=== PATIENT | female | born 1985 | race Caucasian/White ===

== ENCOUNTER 2017-07-13 15:52 | Emergency (ER) | payer OTHER ==
[~2017-07-13] VITALS: Ht 157.5 cm; Wt 68.0 kg
[~2017-07-13 15:52] MED LIST: ALBU90OI INH; ALBU90OI61 INH; CEPH500 PO; Camila0.35 MG PO; DOCU100 PO; ESOM20; ESOM20 PO; FEXO180 PO; FOLI1 PO; HYDSUL200 PO; IBUHYD PO; IBUP400; IBUP800 PO; LEFL20 PO; NAPR220; OXYC5 PO; PHENA200 PO; PROM25 PO; RXONDA4ODT MM; SULTRIDS PO; TRAM50 PO; Verotin-Gr Cap1 EACH; Zofran Odt4 MG PO
[2017-07-13] MEDS ORDERED: LEUCOVORIN CALC PO (16:05)
== END 2017-07-13 16:45 | disposition home or self-care (01) ==
LOC: ER 15:52
DX: S93.401A Sprain of unspecified ligament of right ankle, initial encounter (principal); K21.9 Gastro-esophageal reflux disease without esophagitis; Z88.5 Allergy status to narcotic agent; Z91.040 Latex allergy status; Z91.09 Other allergy status, other than to drugs and biological substances; Z91.048 Other nonmedicinal substance allergy status; Z79.51 Long term (current) use of inhaled steroids; Z79.899 Other long term (current) drug therapy; W10.9XXA Fall (on) (from) unspecified stairs and steps, initial encounter
CPT/HCPCS: 73610; 99283

== ENCOUNTER 2019-05-11 12:14 | Emergency (ER) | payer OTHER ==
[~2019-05-11] VITALS: Ht 154.9 cm; Wt 77.1 kg
[~2019-05-11 12:14] MED LIST changes: +LEUCOVORIN CALC PO
[2019-05-11] MEDS ORDERED: BENZ100A PO (12:37)
[2019-05-11] MEDS ORDERED: Prednisone20 MG PO (12:37)
[2019-05-11] MEDS ORDERED: ALBU90OI INH (12:37)
== END 2019-05-11 12:40 | disposition home or self-care (01) ==
LOC: ER 12:14
DX: J20.8 Acute bronchitis due to other specified organisms (principal); K21.9 Gastro-esophageal reflux disease without esophagitis; Z91.09 Other allergy status, other than to drugs and biological substances; Z88.6 Allergy status to analgesic agent; Z88.8 Allergy status to other drugs, medicaments and biological substances; Z91.040 Latex allergy status; Z91.048 Other nonmedicinal substance allergy status; Z88.5 Allergy status to narcotic agent; Z79.899 Other long term (current) drug therapy; Z79.51 Long term (current) use of inhaled steroids
CPT/HCPCS: 99283